=== PATIENT | female | born 1990 | race Caucasian/White ===

== ENCOUNTER 2022-04-14 03:22 | Inpatient (IN) ==
[2022-04-14 03:06] LABS: Bacteria,Urine Few per hpf (None-Few); Bilirubin,Urine Negative (Negative); Blood,Urine Negative (Negative); Clarity,Urine Turbid (Clear); Color,Urine Light-Yellow (Yellow); Glucose,Urine (UA) Normal (Normal); Ketones,Urine Negative (Negative); Leukocyte Esterase,Urine Small (Negative); Nitrite,Urine Negative (Negative); Protein,Urine Negative (Neg-Trace); RBC,Urine 0-3 per hpf (0-3); Specific Gravity,Urine 1.011 (1.010-1.025); Squamous Epithelial Cell,Urine Moderate per hpf (None-Few); Urobilinogen,Urine Normal (Normal)
[~2022-04-14 03:22] MED LIST: *HR* Nalbuphine 10 MG/ML AMPUL IV PRN; Famotidine 20 MG/2 ML VIAL IVP PRN; Metoclopramide 10 MG/2 ML VIAL IVP PRN; Naloxone 0.4 MG/ML INJ IVP PRN
[2022-04-14] MEDS ORDERED: Penicillin G Potassium 5,000,000 UNIT in 0.9 % Sodium Chloride Mini Bag 100 ML IVPB ONE (03:24)
[2022-04-14] MEDS ORDERED: Oxytocin 30 UNIT/503 ML BAG IVC SCH ×2 (03:30→23:07)
[2022-04-14] MEDS: Ringers Solution, Lactated 1,000 ML IVC SCH ×3 (04:22→16:48)
[2022-04-14 04:53] LABS: Alanine Aminotransferase 7 Units/L (7-52); Aspartate Amino Transferase 11 Units/L (13-39); BUN/Creatinine Ratio 10 (6-26); Basophils # 0.1 K/mcL (0.0-0.2); Basophils % 0.5 %; Blood Urea Nitrogen 5 mg/dL (6-20); Eosinophils # 0.3 K/mcL (0.0-0.6); Eosinophils % 1.3 %; Hematocrit 34.1 % (35.3-44.9); Hemoglobin 11.7 g/dL (11.5-15.4); Immature Granulocytes % 1.4 % (0-4); Lactate Dehydrogenase 124 Units/L (140-271); Lymphocytes # 3.7 K/mcL (0.6-4.6); Lymphocytes % 18.8 %; Mean Corpuscular HGB Conc 34.3 g/dL (31.6-35.5); Mean Corpuscular Hemoglobin 34.3 pg (28.0-33.3); Mean Platelet Volume 9.7 fL (9.4-12.4); Monocytes # 1.2 K/mcL (0.0-1.3); Monocytes % 6.3 %; Platelet Count 332 K/mcL (140-400); Red Blood Count 3.41 M/mcL (3.82-4.97); Red Cell Distribution Width 15.1 % (11.5-14.5); Segmented Neutrophils % 71.7 %; Uric Acid 4.2 mg/dL (2.3-7.6); White Blood Count 19.5 K/mcL (4.3-11.1); eGFR For African Americans > 60 (> 60); eGFR For Non-African Americans > 60 (> 60)
[2022-04-14 04:56] LABS: Protein/Creatinine Ratio,Urine 0.22 mg/mg (0.00-0.20)
[2022-04-14 04:57] LABS: Amphetamine Screen,Urine Negative ng/mL (Cutoff=1000); Barbiturate Screen,Urine Negative ng/mL (Cutoff=200); Benzodiazepines Screen,Urine Negative ng/mL (Cutoff=200); Cannabinoid Screen,Urine Positive ng/mL (Cutoff = 50); Cocaine Screen,Urine Negative ng/mL (Cutoff= 300); Opiate Screen,Urine Negative ng/mL (Cutoff=300); Phencyclidine Screen,Urine Negative ng/mL (Cutoff=25)
[2022-04-14 05:13] LABS: Influenza A PCR Negative (Negative); Influenza B PCR Negative (Negative); Resp. Syncytial Virus PCR Negative (Negative)
[2022-04-14 05:17] LABS: SARS-CoV-2 by PCR (In House) Negative (Negative)
[2022-04-14] MEDS ORDERED: EPHEDrine 50 MG/ML VIAL IVP PRN (05:31)
[2022-04-14] MEDS ORDERED: Epidural Premix (fent/bupiv) 110 ML EP SCH (05:45)
[2022-04-14] MEDS: Penicillin G Potassium 2,500,000 UNIT/105 ML MLS IVPB SCH ×3 (08:10→16:48)
[2022-04-14] MEDS: Ondansetron 4 MG/2 ML VIAL IVP PRN ×2 (08:42→18:30)
[2022-04-14] MEDS ORDERED: *HR* FentaNYL (PF) 100 MCG/2 ML VIAL ONE (17:51)
[2022-04-14] MEDS ORDERED: Ropivacaine/PF 0.2% 20 ML VIAL ONE (17:51)
[2022-04-14] MEDS ORDERED: Measles/Mumps/Rubella Vacc 0.5 ML VIAL SQ PRN (23:07)
[2022-04-14] MEDS ORDERED: Ondansetron ODT 4 MG TAB.RAPDIS SL PRN (23:07)
[2022-04-14] MEDS ORDERED: Lanolin 7 G OINT...G. TP PRN (23:07)
[2022-04-14] MEDS ORDERED: Rho Immune Globulin 1,500 UNIT SYRINGE IM PRN (23:07)
[2022-04-15] MEDS: Benzocaine/Menthol 56 GM AEROSOL SPRAY TP PRN ×2 (00:13→08:07)
[2022-04-15] MEDS: Acetaminophen 325 MG TABLET PO SCH ×5 (00:13→22:59)
[2022-04-15] MEDS: Ibuprofen 600 MG TABLET PO SCH ×5 (00:13→23:01)
[2022-04-15 05:07] LABS: Basophils # 0.1 K/mcL (0.0-0.2); Basophils % 0.4 %; Eosinophils # 0.2 K/mcL (0.0-0.6); Eosinophils % 1.3 %; Hematocrit 29.1 % (35.3-44.9); Immature Granulocytes % 0.8 % (0-4); Lymphocytes # 2.8 K/mcL (0.6-4.6); Lymphocytes % 18.8 %; Mean Corpuscular HGB Conc 34.4 g/dL (31.6-35.5); Mean Corpuscular Hemoglobin 34.8 pg (28.0-33.3); Mean Corpuscular Volume 101.4 fL (83.0-100.0); Mean Platelet Volume 9.9 fL (9.4-12.4); Monocytes % 6.7 %; Neutrophils # 10.8 K/mcL (1.6-8.9); Platelet Count 251 K/mcL (140-400); Red Blood Count 2.87 M/mcL (3.82-4.97); Red Cell Distribution Width 14.7 % (11.5-14.5)
[2022-04-15] MEDS: Prenatal Vit/FA 1 EACH TABLET PO SCH (08:08)
[2022-04-15 21:05] VITALS: BP 129/80; PULSE 91; TEMP 98.8; O2SAT 97
[2022-04-16] MEDS: Acetaminophen 325 MG TABLET PO SCH (07:00)
[2022-04-16] MEDS: Ibuprofen 600 MG TABLET PO SCH (07:01)
[2022-04-16] MEDS: Prenatal Vit/FA 1 EACH TABLET PO SCH (09:04)
== END 2022-04-16 13:44 | disposition home or self-care (01) | DRG 560 ==
LOC: 1NENULAB → 1NENUOBS 23:11
PROVIDERS: ADMIT Student in an Organized Health Care Education/Training Program; ATTEND Student in an Organized Health Care Education/Training Program